=== PATIENT | male | born 1960 | race African-American/Black ===

== ENCOUNTER 2017-05-14 16:15 | Emergency (ER) | payer OTHER ==
--- NOTE | 2017-05-14 16:37 | PDOC ---
Rapid Medical Evaluation Time Seen by Provider: 05/14/17 16:36 Medical Evaluation: Allergies Allergy/AdvReac Type Severity Reaction Status Date / Time No Known Allergies Allergy Verified 05/14/17 16:27 05/14/17 16:36 The patient presents with a chief complaint of: chest pain, nausea vomiting, abd pain, back pain, fever, chills started this AM. Did not get the flu shot. I have performed a brief in-person evaluation of this patient; Pertinent physical exam findings: ambulatory, in no respiratory distress I have ordered the following: labs, IVF The patient will proceed to the ED for further evaluation.
[2017-05-14 16:39] VITALS: BMI 22.7
[2017-05-14] MEDS ORDERED: SODIUM CHLORIDE 1,000 ML IV STA (16:40)
[2017-05-14 17:53] LABS: BASO % 0.3 % (0-2.0); EOS % 0.2 % (0-4.5); HEMATOCRIT 44.6 % (35.4-49); HEMOGLOBIN 14.9 GM/dL (11.7-16.9); LYMPH % 6.1 % (8-40); MCH 32.2 pg (25.7-33.7); MCHC 33.5 g/dl (32.0-35.9); MEAN CELL VOLUME 96.3 fl (80-96); MEAN PLT VOLUME 8.4 fl (7.5-11.1); MONO % 3.2 % (3.8-10.2); NEUT % 90.2 % (42.8-82.8); PLATELET COUNT 144 K/MM3 (134-434); RBC 4.63 M/mm3 (4.00-5.60); RDW 14.7 % (11.9-15.9); WHITE BLOOD COUNT 11.5 K/mm3 (4.0-10.0)
[2017-05-14] MEDS ORDERED: ONDANSETRON 4 MG/2 ML VIAL IVPUSH ONE (18:11)
[2017-05-14] MEDS ORDERED: ACETAMINOPHEN 1000 MG/100 ML VIAL (NON FORMULARY) IVPB ONE (18:11)
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
[2017-05-14 18:22] LABS: ALBUMIN 4.4 g/dl (3.4-5.0); ALK PHOS 90 U/L (45-117); ANION GAP 14 (8-16); BILIRUBIN,TOTAL 0.6 mg/dL (0.2-1.0); BLOOD UREA NITROGEN 14 mg/dL (7-18); CALCIUM 8.7 mg/dL (8.5-10.1); CHLORIDE 105 mmol/L (98-107); CO2 21 mmol/L (21-32); GLUCOSE,RANDOM 97 mg/dL (74-106); LIPASE 131 U/L (73-393); SGOT/AST 99 U/L (15-37); SGPT/ALT 54 U/L (12-78); SODIUM 140 mmol/L (136-145); TOT PROT 7.7 g/dl (6.4-8.2)
[2017-05-14] MEDS ORDERED: ACETAMINOPHEN INJECTION 100 ML IVPB ONE (18:39)
[2017-05-14] MEDS ORDERED: ONDANSETRON 4 MG/2 ML VIAL ONE (18:39)
--- NOTE | 2017-05-14 18:54 | PDOC ---
Attending Attestation - Resident Resident Name: Barry Hedrick - ED Attending Attestation I have performed the following: I have examined & evaluated the patient, The case was reviewed & discussed with the resident, I agree w/resident's findings & plan, Exceptions are as noted - HPI HPI: 05/14/17 18:57 The patient is a 56 year old male, with a significant past medical history of GERD and hepatitis C, who presents to the emergency department with fever, chills, nasal congestion, sore throat, and diffuse body aches since earlier today. He denies any cough, headache, neck pain, ear pain, or dizziness. He endorses mild midsternal chest discomfort associated with coughing, but denies any diaphoresis, palpitations, shortness of breath, or lower extremity edema. He reports mild epigastric discomfort, nausea, vomiting(nonbloody/nonbilious), but denies any diarrhea or constipation. Patient reports he did not receive the flu shot this year. He denies any recent travel or sick contacts. - Physicial Exam PE: 05/14/17 18:58 "GENERAL: Awake, alert, and fully oriented, in no acute distress HEAD: No signs of trauma EYES: PERRLA, EOMI, sclera anicteric, conjunctiva clear ENT: Auricles normal inspection, hearing grossly normal, nares patent, oropharynx clear without exudates. Moist mucosa NECK: Nontender, no stepoffs, Normal ROM, supple, no lymphadenopathy, JVD, or masses LUNGS: Breath sounds equal, clear to auscultation bilaterally. No wheezes, and no crackles HEART: Regular rate and rhythm, normal S1 and S2, no murmurs, rubs or gallops ABDOMEN: Soft, nontender, normoactive bowel sounds. No guarding, no rebound. No masses EXTREMITIES: Normal range of motion, no edema. No clubbing or cyanosis. No cords, erythema, or tenderness NEUROLOGICAL: Cranial nerves II through XII intact. 5/5 strength and sensation in all extremities, Normal speech, normal gait, normal cerebellar function SKIN: Warm, Dry, normal turgor, no rashes or lesions noted. " - Medical Decision Making 05/14/17 18:58 56 M with flu-like illness. Pt also complaining of chest pain. This is likely 2/ 2 cough and URI but will r/o ACS with EKG and serial trops. - Labs, trop x 2 - CXR - EKG - GI cocktail, IVF - Reassess 05/14/17 20:09 Pt signed out to oncoming attending, pending second troponin, chest XR, EKG, and re-evaluation. Case discussed in detail with oncoming Emergency Physician including history, physical exam and ancillary studies. Oncoming Emergency Physician has assumed care for the patient and will complete the evaluation and treatment. Patient is aware of the plan.
[2017-05-14] MEDS ORDERED: FAMOTIDINE 20 MG/50 ML IVPB 20 MG/50 ML MG IVPB ONE ×2 (19:11→19:57)
--- NOTE | 2017-05-14 19:42 | PDOC ---
*Physical Exam - Vital Signs Last Vital Signs Temp Pulse Resp BP Pulse Ox 106 H 18 107/69 100 05/14/17 16:36 05/14/17 16:36 05/14/17 16:36 05/14/17 16:36 ED Treatment Course - LABORATORY CBC & Chemistry Diagram: 05/14/17 17:45 05/14/17 17:45 - ADDITIONAL ORDERS Additional order review: Laboratory Results 05/14/17 05/14/17 18:23 17:45 Sodium 140 Potassium 4.0 Chloride 105 Carbon Dioxide 21 D Anion Gap 14 BUN 14 Creatinine 1.0 Creat Clearance w eGFR > 60 Random Glucose 97 Calcium 8.7 Total Bilirubin 0.6 AST 99 H D ALT 54 D Alkaline Phosphatase 90 Creatine Kinase 617 H Creatine Kinase Index 0.5 CK-MB (CK-2) 3.267 Troponin I < 0.02 Total Protein 7.7 Albumin 4.4 Lipase 131 05/14/17 17:45 RBC 4.63 MCV 96.3 H MCHC 33.5 RDW 14.7 MPV 8.4 Neutrophils % 90.2 H Lymphocytes % 6.1 L D Monocytes % 3.2 L Eosinophils % 0.2 D Basophils % 0.3 - Medications Given in the ED: ED Medications Discontinued Medications Generic Name Dose Route Start Last Admin Trade Name Freq PRN Reason Stop Dose Admin Acetaminophen 1,000 mg 05/14/17 18:11 05/14/17 18:38 Ofirmev Injection - IVPB 05/14/17 18:12 1,000 mg ONCE ONE Administration Sodium Chloride 1,000 mls @ 1,000 mls/hr 05/14/17 16:40 05/14/17 17:49 Normal Saline - IV 05/14/17 17:39 1,000 mls/hr ASDIR STA Administration Ondansetron HCl 4 mg 05/14/17 18:11 05/14/17 18:48 Zofran Injection IVPUSH 05/14/17 18:12 4 mg ONCE ONE Administration Medical Decision Making - Medical Decision Making 05/14/17 23:50 Second trop negative ok to dc with tamiflu 05/14/17 23:56 *DC/Admit/Observation/Transfer Diagnosis at time of Disposition: Viral respiratory illness - Discharge Dispostion Disposition: HOME Condition at time of disposition: Improved Admit: No - Prescriptions Prescriptions: Oseltamivir Phosphate [Tamiflu] 75 mg PO BID #10 capsule - Referrals Referrals: Gisel Wilson [Primary Care Provider] - - Patient Instructions Printed Discharge Instructions: Influenza, DI for Viral Upper Respiratory Infection -- Adult Additional Instructions: Come back to the ER for any new, worsening or concerning symptoms. Follow up within 2-[address] Wilson. - Post Discharge Activity
[2017-05-14 20:34] LABS: URINE APPEARANCE CLEAR; URINE BILIRUBIN NEGATIVE (NEGATIVE); URINE BLOOD NEGATIVE (NEGATIVE); URINE COLOR YELLOW; URINE GLUCOSE (UA) NEGATIVE (NEGATIVE); URINE KETONE 2+ (NEGATIVE); URINE LEUK ESTERASE NEGATIVE (NEGATIVE); URINE NITRITE NEGATIVE (NEGATIVE); URINE PROTEIN NEGATIVE (NEGATIVE); URINE UROBILINOGEN NEGATIVE mg/dL (0.2-1.0)
[2017-05-14] MEDS ORDERED: OSELTAMIVIR PHOSPHATE 75 MG CAPSULE PO ONE (23:54)
[2017-05-15] MEDS ORDERED: OSELTAMIVIR PHOSPHATE 75 MG CAPSULE ONE (00:03)
[2017-05-15 00:10] VITALS: BP 116/54; PULSE 65; TEMP 99.3
--- NOTE | 2017-05-15 08:47 | EKG ---
Test Reason : Blood Pressure : / mmHG Vent. Rate : 089 BPM Atrial Rate : 089 BPM P-R Int : 146 ms QRS Dur : 080 ms QT Int : 362 ms P-R-T Axes : 079 070 025 degrees QTc Int : 440 ms NORMAL SINUS RHYTHM MINIMAL VOLTAGE CRITERIA FOR LVH, MAY BE NORMAL VARIANT NONSPECIFIC T WAVE ABNORMALITY ABNORMAL ECG WHEN COMPARED WITH ECG OF 26-SEP-2014 02:17, ST NO LONGER ELEVATED IN INFERIOR LEADS NONSPECIFIC T WAVE ABNORMALITY NOW EVIDENT IN INFERIOR LEADS NONSPECIFIC T WAVE ABNORMALITY, WORSE IN LATERAL LEADS Confirmed by CIARRA MERRITT, TYLER ([id number]) on 05/15/2017 8:47:26 AM Referred By: Confirmed By:TYLER LAFLEUR MD
[2017-05-15] MEDS ORDERED: MAG HYDROX/ALH/SMC/DPHA/LIDO 240 ML MOUTHWASH MM ONE (22:55)
== END 2017-05-15 01:23 | disposition home or self-care (01) ==
LOC: JER 16:15
PROC: 3E033GC Introduction of Other Therapeutic Substance into Peripheral Vein, Percutaneous Approach (ICD-10-PCS; principal; 2017-05-14)
PROC: 3E0337Z Introduction of Electrolytic and Water Balance Substance into Peripheral Vein, Percutaneous Approach (ICD-10-PCS; 2017-05-14)
PROC: 3E033NZ Introduction of Analgesics, Hypnotics, Sedatives into Peripheral Vein, Percutaneous Approach (ICD-10-PCS; 2017-05-14)
DX: J98.8 Other specified respiratory disorders (principal); B97.89 Other viral agents as the cause of diseases classified elsewhere; K75.9 Inflammatory liver disease, unspecified; K29.70 Gastritis, unspecified, without bleeding
CPT/HCPCS: 36415; 71046-TC-FY; 80053; 81003; 82550; 82553; 83690; 84484; 85025; 93005; 93010; 99282-25

== ENCOUNTER 2022-08-21 12:23 | Inpatient (IN) | payer OTHER ==
[~2022-08-21 12:23] MED LIST: HEPARIN NA (PORCINE) 5,000 UNITS/ML 1ML VIAL SQ ONE; ceFAZolin 2 GRAM PREMIX BAG IVPB ONE
[2022-08-28] MEDS ORDERED: CEFAZOLIN SODIUM 2 GM VIAL IVPB ONE (07:00)
[2022-08-28] MEDS ORDERED: HEPARIN NA (PORCINE) 5,000 UNITS/ML 1ML VIAL SQ ONE (07:30)
[2022-08-28] MEDS ORDERED: HEPARIN NA (PORCINE) 5,000 UNITS/ML 1ML VIAL ONE (12:32)
[2022-08-28] MEDS ORDERED: ceFAZolin SODIUM 1 GM VIAL ONE (12:32)
[2022-08-28] MEDS ORDERED: ROCURONIUM BROMIDE 50 MG/5 ML SYRINGE ONE ×2 (12:35→17:14)
[2022-08-28] MEDS ORDERED: PROPOFOL 20 ML ONE ×2 (12:35→15:34)
[2022-08-28] MEDS ORDERED: MIDAZOLAM HCL 2 MG/2 ML SINGLE DOSE VIAL ONE ×2 (12:35→15:34)
[2022-08-28] MEDS ORDERED: BUPIVACAINE HCL/PF 0.25% (2.5MG/ML) 10 ML VIAL ONE (13:10)
[2022-08-28] MEDS ORDERED: SEVOFLURANE 250 ML BTL ONE (14:21)
[2022-08-28] MEDS ORDERED: oxyCODONE HCL 5 MG TABLET PO PRN ×2 (14:30)
[2022-08-28] MEDS ORDERED: ONDANSETRON 4 MG/2 ML VIAL IVPUSH PRN ×2 (14:30→19:54)
[2022-08-28] MEDS ORDERED: LACTATED RINGERS SOLUTION 1,000 ML IV SCH (14:30)
[2022-08-28] MEDS ORDERED: PROMETHAZINE HCL 25 MG/1 ML VIAL IVPB PRN ×2 (14:30→19:54)
[2022-08-28] MEDS ORDERED: ACETAMINOPHEN 1000 MG/100 ML BAG IVPB PRN (14:31)
[2022-08-28] MEDS ORDERED: LIDOCAINE HCL/PF 2% SDV 5ML VIAL ONE (15:34)
[2022-08-28] MEDS ORDERED: DEXAMETHASONE SOD PHOSPHATE 4 MG/1 ML VIAL ONE (15:34)
[2022-08-28] MEDS ORDERED: ONDANSETRON 4 MG/2 ML VIAL ONE (15:34)
[2022-08-28] MEDS ORDERED: ceFAZolin SODIUM 1 GM VIAL IVPB ONE (16:25)
[2022-08-28] MEDS ORDERED: SUGAMMADEX SODIUM 200 MG/2 ML VIAL ONE (16:39)
[2022-08-28] MEDS ORDERED: BUPIVACAINE HCL/PF 0.25% (2.5MG/ML) 10 ML VIAL IJ ONE (18:48)
[2022-08-28] MEDS ORDERED: HYDROmorphone *PCA* 10MG/50ML DISP.SYRIN ONE (19:27)
[2022-08-28] MEDS: ALBUTEROL SO4 2.5/IPRATROPIUM 0.5 INH SOL 3 ML VIAL.NEB. NEB PRN (19:50)
[2022-08-28] MEDS ORDERED: ALBUTEROL SO4 0.083% IH SOL 2.5 MG/3 ML VIAL.NEB. NEB ONE (19:51)
[2022-08-28] MEDS ORDERED: ACETAMINOPHEN 1000 MG/100 ML BAG IVPB SCH (20:00)
[2022-08-28] MEDS ORDERED: SODIUM CHLORIDE 1,000 ML IV SCH (20:00)
[2022-08-28 20:13] LABS: BASO % 0.8 % (0-2.0); EOS % 0.1 % (0-4.5); HEMATOCRIT 34.4 % (35.4-49); HEMOGLOBIN 11.5 GM/dL (11.7-16.9); LYMPH % 25.3 % (8-40); MCH 33.9 pg (25.7-33.7); MCHC 33.5 g/dl (32.0-35.9); MEAN CELL VOLUME 101.1 fl (80-96); MEAN PLT VOLUME 7.4 fl (7.5-11.1); MONO % 1.1 % (3.8-10.2); NEUT % 72.7 % (42.8-82.8); PLATELET COUNT 112 10^3/uL (134-434); RDW 14.2 % (11.9-15.9); WHITE BLOOD COUNT 4.9 K/mm3 (4.0-10.0)
[2022-08-28 20:32] LABS: POTASSIUM 3.6 mmol/L (3.5-5.1)
[2022-08-28 20:34] LABS: CALCIUM 7.7 mg/dL (8.5-10.1)
[2022-08-28 20:35] LABS: ALBUMIN 2.8 g/dl (3.4-5.0); BLOOD UREA NITROGEN 8.9 mg/dL (7-18); INR 1.2 (0.83-1.09); PROTHROMBIN TIME (PATIENT) 13.9 SEC (9.7-13.0)
[2022-08-28 20:37] LABS: CREATININE 0.8 mg/dL (0.55-1.3)
[2022-08-28 20:39] LABS: BILIRUBIN,TOTAL 0.4 mg/dL (0.2-1); TOT PROT 5.2 g/dl (6.4-8.2)
[2022-08-28] MEDS: HYDROmorphone *PCA* 10MG/50ML DISP.SYRIN PCA SCH (22:08)
[2022-08-28] MEDS: ACETAMINOPHEN 1000 MG/100 ML BAG IVPB SCH (22:11)
[2022-08-28] MEDS: CHLORHEXIDINE GLUCONATE 4% CLEANSER FOR DECOLONIZATION TP SCH (22:12)
[2022-08-28] MEDS: hydrOXYzine PAMOATE 25 MG CAPSULE (FP) PO SCH (22:12)
[2022-08-28] MEDS: MIRTAZAPINE 30 MG TABLET PO SCH (22:12)
[2022-08-28] MEDS: ATORVASTATIN CA 40 MG TABLET (FP) PO SCH (22:12)
[2022-08-28] MEDS: FAMOTIDINE 40 MG TABLET PO SCH (22:12)
[2022-08-28] MEDS: CEFAZOLIN 1 GM in DEXTROSE 5%-WATER - 50 ML IVPB SCH (23:55)
[2022-08-28] MEDS: MUPIROCIN 2% TOPICAL OINTMENT FOR DECOLONIZATION NS SCH (23:55)
[2022-08-29] MEDS ORDERED: ONDANSETRON 4 MG/2 ML VIAL IVPUSH PRN ×2 (01:01→08:01)
[2022-08-29] MEDS ORDERED: ONDANSETRON 4 MG/2 ML VIAL ONE (01:04)
[2022-08-29] MEDS: ACETAMINOPHEN 1000 MG/100 ML BAG IVPB SCH ×3 (01:06→13:04)
[2022-08-29] MEDS: CEFAZOLIN 1 GM in DEXTROSE 5%-WATER - 50 ML IVPB SCH ×3 (01:07→17:23)
[2022-08-29] MEDS: hydrOXYzine PAMOATE 25 MG CAPSULE (FP) PO SCH (05:02)
[2022-08-29 07:13] LABS: INR 1.03 (0.83-1.09)
[2022-08-29 07:16] LABS: ACTIVATED PTT 24.4 SECONDS (25.2-36.5)
[2022-08-29 07:17] LABS: HEMATOCRIT 34.7 % (35.4-49); HEMOGLOBIN 11.7 GM/dL (11.7-16.9); MCH 34.3 pg (25.7-33.7); MCHC 33.6 g/dl (32.0-35.9); MEAN CELL VOLUME 102.1 fl (80-96); MEAN PLT VOLUME 8.2 fl (7.5-11.1); PLATELET COUNT 115 10^3/uL (134-434); RDW 14.9 % (11.9-15.9); WHITE BLOOD COUNT 10.6 K/mm3 (4.0-10.0)
[2022-08-29 08:24] LABS: POTASSIUM 4.5 mmol/L (3.5-5.1)
[2022-08-29 08:25] LABS: CALCIUM 8.2 mg/dL (8.5-10.1)
[2022-08-29 08:26] LABS: BLOOD UREA NITROGEN 7.2 mg/dL (7-18); MAGNESIUM 1.5 mg/dL (1.8-2.4)
[2022-08-29 08:29] LABS: CREATININE 0.8 mg/dL (0.55-1.3); PHOSPHOROUS 4.5 mg/dL (2.5-4.9)
[2022-08-29] MEDS: DOCUSATE SODIUM 100 MG CAPSULE (FP) PO SCH ×2 (09:03→21:10)
[2022-08-29] MEDS: NICOTINE 21 MG/24 HOURS TOPICAL PATCH TD SCH (09:03)
[2022-08-29] MEDS: FOLIC ACID 1 MG TABLET (FP) PO SCH (09:03)
[2022-08-29] MEDS: CHOLECALCIFEROL (VIT D3) 1,000 UNIT (25 MCG) TABLET PO SCH (09:04)
[2022-08-29] MEDS: PANTOPRAZOLE 40 MG TABLET PO SCH (09:04)
[2022-08-29] MEDS: MUPIROCIN 2% TOPICAL OINTMENT FOR DECOLONIZATION NS SCH ×2 (09:04→21:11)
[2022-08-29] MEDS ORDERED: MAGNESIUM 2GM/50ML STERILE WATER IVPB IVPB ONE (09:30)
[2022-08-29] MEDS ORDERED: TADALAFIL 5 MG PO SCH (10:00)
[2022-08-29] MEDS: LORazepam 2 MG/ML SDV VIAL IVPUSH PRN (15:39)
[2022-08-29] MEDS ORDERED: MIRTAZAPINE 15 MG TABLET (FP) ONE (20:58)
[2022-08-29] MEDS: MIRTAZAPINE 30 MG TABLET PO SCH (21:10)
[2022-08-29] MEDS: ATORVASTATIN CA 40 MG TABLET (FP) PO SCH (21:10)
[2022-08-29] MEDS: FAMOTIDINE 40 MG TABLET PO SCH (21:10)
[2022-08-29] MEDS: CHLORHEXIDINE GLUCONATE 4% CLEANSER FOR DECOLONIZATION TP SCH (21:11)
[2022-08-30 06:29] LABS: BASO % 0.1 % (0-2.0); HEMATOCRIT 31.3 % (35.4-49); HEMOGLOBIN 10.5 GM/dL (11.7-16.9); MCH 34.4 pg (25.7-33.7); MCHC 33.7 g/dl (32.0-35.9); MEAN CELL VOLUME 102.3 fl (80-96); MEAN PLT VOLUME 8.5 fl (7.5-11.1); MONO % 7.6 % (3.8-10.2); NEUT % 79.3 % (42.8-82.8); PLATELET COUNT 83 10^3/uL (134-434); RBC 3.06 M/mm3 (4.00-5.60); RDW 14.5 % (11.9-15.9); WHITE BLOOD COUNT 8.9 K/mm3 (4.0-10.0)
[2022-08-30 06:41] LABS: POTASSIUM 3.8 mmol/L (3.5-5.1)
[2022-08-30 06:46] LABS: CALCIUM 8.1 mg/dL (8.5-10.1)
[2022-08-30 06:47] LABS: BLOOD UREA NITROGEN 5.6 mg/dL (7-18); MAGNESIUM 2.1 mg/dL (1.8-2.4)
[2022-08-30 06:49] LABS: PHOSPHOROUS 1.4 mg/dL (2.5-4.9)
[2022-08-30 06:50] LABS: CREATININE 0.7 mg/dL (0.55-1.3)
[2022-08-30 06:51] LABS: BILIRUBIN,TOTAL 0.6 mg/dL (0.2-1); TOT PROT 5.6 g/dl (6.4-8.2)
[2022-08-30] MEDS: PANTOPRAZOLE 40 MG TABLET PO SCH (09:54)
[2022-08-30] MEDS: CHOLECALCIFEROL (VIT D3) 1,000 UNIT (25 MCG) TABLET PO SCH (09:54)
[2022-08-30] MEDS: FOLIC ACID 1 MG TABLET (FP) PO SCH (09:54)
[2022-08-30] MEDS: NICOTINE 21 MG/24 HOURS TOPICAL PATCH TD SCH (09:54)
[2022-08-30] MEDS: DOCUSATE SODIUM 100 MG CAPSULE (FP) PO SCH ×2 (09:54→21:54)
[2022-08-30] MEDS: MUPIROCIN 2% TOPICAL OINTMENT FOR DECOLONIZATION NS SCH ×2 (09:55→21:55)
[2022-08-30] MEDS ORDERED: ACETAMINOPHEN 1000 MG/100 ML BAG IVPB ONE (19:11)
[2022-08-30] MEDS ORDERED: MIRTAZAPINE 15 MG TABLET (FP) ONE (19:43)
[2022-08-30] MEDS: ATORVASTATIN CA 40 MG TABLET (FP) PO SCH (21:54)
[2022-08-30] MEDS: FAMOTIDINE 40 MG TABLET PO SCH (21:54)
[2022-08-30] MEDS: MIRTAZAPINE 30 MG TABLET PO SCH (21:55)
[2022-08-30] MEDS: CHLORHEXIDINE GLUCONATE 4% CLEANSER FOR DECOLONIZATION TP SCH (21:56)
[2022-08-30] MEDS: ALBUTEROL SO4 2.5/IPRATROPIUM 0.5 INH SOL 3 ML VIAL.NEB. NEB PRN (22:23)
[2022-08-31] MEDS: LORazepam 2 MG/ML SDV VIAL IVPUSH PRN (04:37)
[2022-08-31] MEDS ORDERED: LORazepam 2 MG/ML SDV VIAL IVPUSH STA ×2 (05:02→13:06)
[2022-08-31] MEDS ORDERED: HYDROmorphone HCl 2 MG/ML VIAL IVPUSH ONE (05:05)
[2022-08-31 06:55] LABS: HEMATOCRIT 28.2 % (35.4-49); HEMOGLOBIN 9.7 GM/dL (11.7-16.9); MCH 35.6 pg (25.7-33.7); MCHC 34.4 g/dl (32.0-35.9); MEAN CELL VOLUME 103.5 fl (80-96); MEAN PLT VOLUME 8.6 fl (7.5-11.1); PLATELET COUNT 83 10^3/uL (134-434); RBC 2.72 M/mm3 (4.00-5.60); RDW 14.3 % (11.9-15.9); WHITE BLOOD COUNT 7.8 K/mm3 (4.0-10.0)
[2022-08-31 07:49] LABS: POTASSIUM 3.6 mmol/L (3.5-5.1)
[2022-08-31 07:56] LABS: BLOOD UREA NITROGEN 6.4 mg/dL (7-18); CALCIUM 8.1 mg/dL (8.5-10.1); MAGNESIUM 2.1 mg/dL (1.8-2.4)
[2022-08-31 08:00] LABS: CREATININE 0.7 mg/dL (0.55-1.3); PHOSPHOROUS 2.3 mg/dL (2.5-4.9)
[2022-08-31] MEDS ORDERED: ACETAMINOPHEN 1000 MG/100 ML BAG IVPB STA (09:51)
[2022-08-31] MEDS: NICOTINE 21 MG/24 HOURS TOPICAL PATCH TD SCH (09:55)
[2022-08-31] MEDS ORDERED: LORazepam 2 MG/ML SDV VIAL IVPUSH ONE (10:30)
[2022-08-31] MEDS ORDERED: DEXMEDETOMIDINE PREMIX 400 MCG/100 ML BAG IVPB ONE (11:47)
[2022-08-31] MEDS: PANTOPRAZOLE 40 MG TABLET PO SCH (13:05)
[2022-08-31] MEDS: DOCUSATE SODIUM 100 MG CAPSULE (FP) PO SCH ×2 (13:05→21:14)
[2022-08-31] MEDS: FOLIC ACID 1 MG TABLET (FP) PO SCH (13:05)
[2022-08-31] MEDS: CHOLECALCIFEROL (VIT D3) 1,000 UNIT (25 MCG) TABLET PO SCH (13:05)
[2022-08-31] MEDS: DEXMEDETOMIDINE PREMIX 400 MCG/100 ML BAG IVPB SCH ×2 (13:15→22:46)
[2022-08-31] MEDS: ACETAMINOPHEN 1000 MG/100 ML BAG IVPB SCH ×2 (14:30→17:53)
[2022-08-31] MEDS: GABAPENTIN 300 MG CAPSULE PO SCH ×2 (14:30→22:50)
[2022-08-31] MEDS: MUPIROCIN 2% TOPICAL OINTMENT FOR DECOLONIZATION NS SCH ×2 (15:31→21:19)
[2022-08-31] MEDS: KETOROLAC TROMETHAMINE 15 MG/ML VIAL IVPUSH PRN (21:03)
[2022-08-31] MEDS: ATORVASTATIN CA 40 MG TABLET (FP) PO SCH (21:14)
[2022-08-31] MEDS: CHLORHEXIDINE GLUCONATE 4% CLEANSER FOR DECOLONIZATION TP SCH (21:14)
[2022-08-31] MEDS: FAMOTIDINE 40 MG TABLET PO SCH (21:15)
[2022-08-31] MEDS: MIRTAZAPINE 30 MG TABLET PO SCH (21:16)
[2022-09-01] MEDS: ACETAMINOPHEN 1000 MG/100 ML BAG IVPB SCH ×3 (02:43→18:21)
[2022-09-01] MEDS: DEXMEDETOMIDINE PREMIX 400 MCG/100 ML BAG IVPB SCH ×5 (03:45→14:30)
[2022-09-01] MEDS: GABAPENTIN 300 MG CAPSULE PO SCH ×3 (06:36→21:39)
[2022-09-01 07:25] LABS: HEMATOCRIT 28.1 % (35.4-49); HEMOGLOBIN 9.5 GM/dL (11.7-16.9); MCH 34.6 pg (25.7-33.7); MCHC 33.6 g/dl (32.0-35.9); MEAN CELL VOLUME 102.8 fl (80-96); MEAN PLT VOLUME 8.6 fl (7.5-11.1); PLATELET COUNT 94 10^3/uL (134-434); RBC 2.74 M/mm3 (4.00-5.60); RDW 13.9 % (11.9-15.9); WHITE BLOOD COUNT 5.3 K/mm3 (4.0-10.0)
[2022-09-01 07:55] LABS: POTASSIUM 3.7 mmol/L (3.5-5.1)
[2022-09-01 07:59] LABS: BLOOD UREA NITROGEN 14.6 mg/dL (7-18); CALCIUM 8.1 mg/dL (8.5-10.1)
[2022-09-01 08:00] LABS: MAGNESIUM 2.2 mg/dL (1.8-2.4)
[2022-09-01 08:02] LABS: CREATININE 0.6 mg/dL (0.55-1.3); PHOSPHOROUS 3.6 mg/dL (2.5-4.9)
[2022-09-01] MEDS ORDERED: LORazepam 2 MG/ML SDV VIAL IVPUSH SCH ×2 (08:15→10:01)
[2022-09-01] MEDS ORDERED: LORazepam 2 MG/ML SDV VIAL IVPB SCH (09:00)
[2022-09-01] MEDS: LORazepam 2 MG/ML SDV VIAL IVPUSH SCH ×3 (10:10→21:43)
[2022-09-01] MEDS: NICOTINE 21 MG/24 HOURS TOPICAL PATCH TD SCH (10:15)
[2022-09-01] MEDS: FOLIC ACID 1 MG TABLET (FP) PO SCH (10:20)
[2022-09-01] MEDS: PANTOPRAZOLE 40 MG TABLET PO SCH (10:20)
[2022-09-01] MEDS: DOCUSATE SODIUM 100 MG CAPSULE (FP) PO SCH ×2 (10:20→21:18)
[2022-09-01] MEDS: THIAMINE HCL 100 MG TABLET (FP) PO SCH (10:21)
[2022-09-01] MEDS: CYANOCOBALAMIN 1,000 MCG TABLET (FP) PO SCH (10:21)
[2022-09-01] MEDS: CHOLECALCIFEROL (VIT D3) 1,000 UNIT (25 MCG) TABLET PO SCH (10:22)
[2022-09-01] MEDS: MUPIROCIN 2% TOPICAL OINTMENT FOR DECOLONIZATION NS SCH ×2 (10:31→21:39)
[2022-09-01] MEDS: SODIUM CHLORIDE 1,000 ML IV SCH (15:12)
[2022-09-01] MEDS ORDERED: SODIUM CHLORIDE 500 ML IV STA ×2 (16:25→17:40)
[2022-09-01] MEDS ORDERED: LACTATED RINGERS SOLUTION 1,000 ML/1,000 ML INFUS.BAG IV ONE (19:31)
[2022-09-01] MEDS: HYDROmorphone *PCA* 10MG/50ML DISP.SYRIN PCA SCH ×2 (19:44→19:45)
[2022-09-01] MEDS: ATORVASTATIN CA 40 MG TABLET (FP) PO SCH (21:37)
[2022-09-01] MEDS: MIRTAZAPINE 30 MG TABLET PO SCH (21:38)
[2022-09-01] MEDS: FAMOTIDINE 40 MG TABLET PO SCH (21:38)
[2022-09-01] MEDS: CHLORHEXIDINE GLUCONATE 4% CLEANSER FOR DECOLONIZATION TP SCH (21:39)
[2022-09-01] MEDS ORDERED: LACTATED RINGERS SOLUTION 1,000 ML/1,000 ML INFUS.BAG IV STA (22:05)
[2022-09-01] MEDS ORDERED: LACTATED RINGERS SOLUTION 1000 ML INFUS.BAG IV SCH (22:15)
[2022-09-02] MEDS: ACETAMINOPHEN 1000 MG/100 ML BAG IVPB SCH ×3 (02:31→17:40)
[2022-09-02] MEDS: LORazepam 2 MG/ML SDV VIAL IVPUSH SCH ×4 (02:32→21:53)
[2022-09-02] MEDS: SODIUM CHLORIDE 1,000 ML IV SCH (02:32)
[2022-09-02] MEDS ORDERED: LACTATED RINGERS SOLUTION 1,000 ML/1,000 ML INFUS.BAG IV SCH (03:15)
[2022-09-02] MEDS: PHENYLEPHRINE NS PREMIX 50,000 MCG/500 ML BAG CVP SCH ×3 (04:39→23:47)
[2022-09-02] MEDS: GABAPENTIN 300 MG CAPSULE PO SCH ×3 (06:29→21:53)
[2022-09-02 07:52] LABS: BASO % 0.5 % (0-2.0); EOS % 3.4 % (0-4.5); HEMATOCRIT 28.1 % (35.4-49); HEMOGLOBIN 9.5 GM/dL (11.7-16.9); LYMPH % 10.3 % (8-40); MCH 34.8 pg (25.7-33.7); MCHC 33.7 g/dl (32.0-35.9); MEAN CELL VOLUME 103.2 fl (80-96); MEAN PLT VOLUME 8.3 fl (7.5-11.1); MONO % 10.4 % (3.8-10.2); NEUT % 75.4 % (42.8-82.8); PLATELET COUNT 162 10^3/uL (134-434); RBC 2.72 M/mm3 (4.00-5.60); RDW 13.9 % (11.9-15.9); WHITE BLOOD COUNT 7.3 K/mm3 (4.0-10.0)
[2022-09-02 07:58] LABS: POTASSIUM 3.7 mmol/L (3.5-5.1)
[2022-09-02 08:02] LABS: BLOOD UREA NITROGEN 11.5 mg/dL (7-18); CALCIUM 8.1 mg/dL (8.5-10.1); MAGNESIUM 1.8 mg/dL (1.8-2.4)
[2022-09-02 08:05] LABS: CREATININE 0.6 mg/dL (0.55-1.3); PHOSPHOROUS 2.7 mg/dL (2.5-4.9)
[2022-09-02 08:07] LABS: BILIRUBIN,TOTAL 0.5 mg/dL (0.2-1); TOT PROT 4.4 g/dl (6.4-8.2)
[2022-09-02] MEDS ORDERED: oxyCODONE HCL 5 MG TABLET PO PRN (08:42)
[2022-09-02] MEDS ORDERED: LORazepam 2 MG/ML SDV VIAL IVPB SCH (09:00)
[2022-09-02] MEDS: FOLIC ACID 1 MG TABLET (FP) PO SCH (09:48)
[2022-09-02] MEDS: oxyCODONE HCL 5 MG TABLET PO PRN (09:48)
[2022-09-02] MEDS: PANTOPRAZOLE 40 MG TABLET PO SCH (09:48)
[2022-09-02] MEDS: NICOTINE 21 MG/24 HOURS TOPICAL PATCH TD SCH (09:48)
[2022-09-02] MEDS: THIAMINE HCL 100 MG TABLET (FP) PO SCH (09:48)
[2022-09-02] MEDS: MIDODRINE HCL 5 MG TABLET PO SCH ×3 (09:48→17:40)
[2022-09-02] MEDS: DOCUSATE SODIUM 100 MG CAPSULE (FP) PO SCH (09:48)
[2022-09-02] MEDS: CYANOCOBALAMIN 1,000 MCG TABLET (FP) PO SCH (09:49)
[2022-09-02] MEDS: CHOLECALCIFEROL (VIT D3) 1,000 UNIT (25 MCG) TABLET PO SCH (09:49)
[2022-09-02] MEDS: MUPIROCIN 2% TOPICAL OINTMENT FOR DECOLONIZATION NS SCH (09:50)
[2022-09-02] MEDS ORDERED: POLYETHYLENE GLYCOL (HEALTHYLAX) 3350 17 GM PACKET PO SCH (10:00)
[2022-09-02] MEDS ORDERED: LACTATED RINGERS SOLUTION 1000 ML INFUS.BAG IV ONE (11:13)
[2022-09-02] MEDS: LACTATED RINGERS SOLUTION 1,000 ML/1,000 ML INFUS.BAG IV SCH (11:55)
[2022-09-02] MEDS: KETOROLAC TROMETHAMINE 15 MG/ML VIAL IVPUSH PRN (13:08)
[2022-09-02] MEDS: HEPARIN NA (PORCINE) 5,000 UNITS/ML 1ML VIAL SQ SCH ×2 (13:09→21:52)
[2022-09-02] MEDS ORDERED: PIPERACILLIN/TAZOB 4.5 GM 4.5 GM in DEXTROSE 5%-WATER 100 ML IVPB SCH ×2 (13:45→14:00)
[2022-09-02] MEDS: PIPERACILLIN/TAZOB 4.5 GM 4.5 GM in DEXTROSE 5%-WATER 100 ML IVPB SCH ×2 (14:43→17:40)
[2022-09-02] MEDS ORDERED: MIRTAZAPINE 15 MG TABLET (FP) ONE (21:49)
[2022-09-02] MEDS: ATORVASTATIN CA 40 MG TABLET (FP) PO SCH (21:53)
[2022-09-02] MEDS: CHLORHEXIDINE GLUCONATE 4% CLEANSER FOR DECOLONIZATION TP SCH (21:53)
[2022-09-02] MEDS: MIRTAZAPINE 30 MG TABLET PO SCH (21:54)
[2022-09-02] MEDS: FAMOTIDINE 40 MG TABLET PO SCH (21:55)
[2022-09-03] MEDS: PIPERACILLIN/TAZOB 4.5 GM 4.5 GM in DEXTROSE 5%-WATER 100 ML IVPB SCH ×3 (01:35→17:28)
[2022-09-03] MEDS: LACTATED RINGERS SOLUTION 1,000 ML/1,000 ML INFUS.BAG IV SCH ×2 (01:36→12:15)
[2022-09-03] MEDS: ACETAMINOPHEN 1000 MG/100 ML BAG IVPB SCH ×3 (02:35→17:28)
[2022-09-03] MEDS: LORazepam 2 MG/ML SDV VIAL IVPUSH SCH (02:35)
[2022-09-03] MEDS: HEPARIN NA (PORCINE) 5,000 UNITS/ML 1ML VIAL SQ SCH ×3 (05:38→21:26)
[2022-09-03] MEDS: GABAPENTIN 300 MG CAPSULE PO SCH ×4 (05:39→07:10)
[2022-09-03 07:49] LABS: HEMATOCRIT 24.3 % (35.4-49); HEMOGLOBIN 8.3 GM/dL (11.7-16.9); MCH 34.8 pg (25.7-33.7); MCHC 34.1 g/dl (32.0-35.9); MEAN CELL VOLUME 102.1 fl (80-96); MEAN PLT VOLUME 7.7 fl (7.5-11.1); PLATELET COUNT 206 10^3/uL (134-434); RBC 2.38 M/mm3 (4.00-5.60); RDW 13.9 % (11.9-15.9); WHITE BLOOD COUNT 8.6 K/mm3 (4.0-10.0)
[2022-09-03 08:06] LABS: POTASSIUM 3.4 mmol/L (3.5-5.1)
[2022-09-03 08:14] LABS: ALBUMIN 1.9 g/dl (3.4-5.0)
[2022-09-03 08:16] LABS: BLOOD UREA NITROGEN 6.4 mg/dL (7-18); CALCIUM 7.8 mg/dL (8.5-10.1)
[2022-09-03 08:17] LABS: CREATININE 0.7 mg/dL (0.55-1.3); MAGNESIUM 1.6 mg/dL (1.8-2.4); PHOSPHOROUS 1.2 mg/dL (2.5-4.9)
[2022-09-03 08:18] LABS: BILIRUBIN,TOTAL 0.4 mg/dL (0.2-1); TOT PROT 4.7 g/dl (6.4-8.2)
[2022-09-03] MEDS ORDERED: NAPH,MB-DB/K PH,MBDB POWDER PACKET PO ONE (08:30)
[2022-09-03] MEDS ORDERED: MAGNESIUM SULF 50% (8.12 MEQ/2 ML-1 GM VIAL) IVPB ONE (08:30)
[2022-09-03] MEDS ORDERED: POTASSIUM CHLORIDE ORAL LIQUID 20 MEQ/15 ML PO ONE (08:30)
[2022-09-03] MEDS ORDERED: LORazepam 2 MG/ML SDV VIAL IVPB ONE (09:00)
[2022-09-03] MEDS ORDERED: LORazepam 2 MG/ML SDV VIAL IVPUSH ONE ×2 (09:00→11:36)
[2022-09-03 09:01] LABS: URINE APPEARANCE CLEAR; URINE BILIRUBIN NEGATIVE (NEGATIVE); URINE COLOR YELLOW; URINE GLUCOSE (UA) NEGATIVE (NEGATIVE); URINE KETONE 1+ (NEGATIVE); URINE LEUK ESTERASE NEGATIVE (NEGATIVE); URINE NITRITE NEGATIVE (NEGATIVE); URINE PROTEIN TRACE (NEGATIVE); URINE UROBILINOGEN 0.2 mg/dL (0.2-1.0)
[2022-09-03] MEDS: THIAMINE HCL 100 MG TABLET (FP) PO SCH (09:32)
[2022-09-03] MEDS: CHOLECALCIFEROL (VIT D3) 1,000 UNIT (25 MCG) TABLET PO SCH (09:32)
[2022-09-03] MEDS: CYANOCOBALAMIN 1,000 MCG TABLET (FP) PO SCH (09:33)
[2022-09-03] MEDS: MIDODRINE HCL 5 MG TABLET PO SCH ×3 (09:33→17:28)
[2022-09-03] MEDS: NICOTINE 21 MG/24 HOURS TOPICAL PATCH TD SCH (09:33)
[2022-09-03] MEDS: PANTOPRAZOLE 40 MG TABLET PO SCH (09:33)
[2022-09-03] MEDS: FOLIC ACID 1 MG TABLET (FP) PO SCH (09:33)
[2022-09-03 09:36] LABS: ANISOCYTOSIS 1+; MACROCYTOSIS 1+
[2022-09-03] MEDS ORDERED: DEXMEDETOMIDINE PREMIX 400 MCG/100 ML BAG IVPB ONE (11:59)
[2022-09-03] MEDS: DEXMEDETOMIDINE PREMIX 400 MCG/100 ML BAG IVPB SCH ×2 (12:14→19:50)
[2022-09-03] MEDS ORDERED: chlordiazePOXIDE HCL 10 MG CAPSULE PO SCH (14:00)
[2022-09-03] MEDS ORDERED: SODIUM CHLORIDE IVPB ONE (14:52)
[2022-09-03] MEDS ORDERED: POTASSIUM PHOSPHATE IVPB ONE (14:52)
[2022-09-03 15:23] VITALS: BMI 20.8
[2022-09-03] MEDS ORDERED: POTASSIUM PHOSPHATE 45 MM in SODIUM CHLORIDE 500 ML IVPB ONE (16:00)
[2022-09-03] MEDS: LORazepam 2 MG/ML SDV VIAL IVPUSH PRN ×2 (18:55→21:56)
[2022-09-03 21:12] LABS: BASO % 0.6 % (0-2.0); EOS % 1.7 % (0-4.5); HEMOGLOBIN 8.5 GM/dL (11.7-16.9); LYMPH % 10.2 % (8-40); MCHC 34.1 g/dl (32.0-35.9); MEAN CELL VOLUME 102.4 fl (80-96); MEAN PLT VOLUME 8.9 fl (7.5-11.1); MONO % 13.9 % (3.8-10.2); NEUT % 73.6 % (42.8-82.8); PLATELET COUNT 193 10^3/uL (134-434); RBC 2.44 M/mm3 (4.00-5.60); RDW 14.1 % (11.9-15.9); WHITE BLOOD COUNT 8.6 K/mm3 (4.0-10.0)
[2022-09-03] MEDS: PHENYLEPHRINE NS PREMIX 50,000 MCG/500 ML BAG CVP SCH (21:20)
[2022-09-03] MEDS: CHLORHEXIDINE GLUCONATE 4% CLEANSER FOR DECOLONIZATION TP SCH (21:26)
[2022-09-03] MEDS: ATORVASTATIN CA 40 MG TABLET (FP) PO SCH (21:27)
[2022-09-04] MEDS: LORazepam 2 MG/ML SDV VIAL IVPUSH PRN ×3 (00:50→20:10)
[2022-09-04] MEDS: ACETAMINOPHEN 1000 MG/100 ML BAG IVPB SCH ×3 (01:20→17:29)
[2022-09-04] MEDS: PIPERACILLIN/TAZOB 4.5 GM 4.5 GM in DEXTROSE 5%-WATER 100 ML IVPB SCH ×3 (01:21→17:25)
[2022-09-04] MEDS: DEXMEDETOMIDINE PREMIX 400 MCG/100 ML BAG IVPB SCH ×3 (02:56→20:10)
[2022-09-04 04:40] LABS: CALCIUM 8.1 mg/dL (8.5-10.1); POTASSIUM 4.2 mmol/L (3.5-5.1)
[2022-09-04 04:41] LABS: ALBUMIN 1.8 g/dl (3.4-5.0); BLOOD UREA NITROGEN 5.5 mg/dL (7-18)
[2022-09-04 04:43] LABS: CREATININE 0.5 mg/dL (0.55-1.3); PHOSPHOROUS 5.2 mg/dL (2.5-4.9)
[2022-09-04 04:45] LABS: BILIRUBIN,TOTAL 0.4 mg/dL (0.2-1); TOT PROT 4.6 g/dl (6.4-8.2)
[2022-09-04] MEDS: HEPARIN NA (PORCINE) 5,000 UNITS/ML 1ML VIAL SQ SCH ×3 (05:22→21:22)
[2022-09-04] MEDS: LACTATED RINGERS SOLUTION 1,000 ML/1,000 ML INFUS.BAG IV SCH ×4 (06:06→23:24)
[2022-09-04 07:56] LABS: BASO % 0.8 % (0-2.0); EOS % 3.2 % (0-4.5); HEMATOCRIT 27.7 % (35.4-49); HEMOGLOBIN 9.2 GM/dL (11.7-16.9); LYMPH % 16.7 % (8-40); MCH 34.2 pg (25.7-33.7); MCHC 33.4 g/dl (32.0-35.9); MEAN CELL VOLUME 102.2 fl (80-96); MEAN PLT VOLUME 8.5 fl (7.5-11.1); MONO % 13.6 % (3.8-10.2); NEUT % 65.7 % (42.8-82.8); PLATELET COUNT 234 10^3/uL (134-434); RBC 2.71 M/mm3 (4.00-5.60); RDW 13.7 % (11.9-15.9); WHITE BLOOD COUNT 6.6 K/mm3 (4.0-10.0)
[2022-09-04] MEDS: CHOLECALCIFEROL (VIT D3) 1,000 UNIT (25 MCG) TABLET PO SCH (09:15)
[2022-09-04] MEDS: PANTOPRAZOLE 40 MG TABLET PO SCH ×2 (09:15→12:43)
[2022-09-04] MEDS: FOLIC ACID 1 MG TABLET (FP) PO SCH ×2 (09:15→12:43)
[2022-09-04] MEDS: THIAMINE HCL 100 MG TABLET (FP) PO SCH (09:15)
[2022-09-04] MEDS: NICOTINE 21 MG/24 HOURS TOPICAL PATCH TD SCH (09:15)
[2022-09-04] MEDS: MIDODRINE HCL 5 MG TABLET PO SCH ×4 (09:17→17:26)
[2022-09-04] MEDS: MULTIVITAMINS (DAILY MVI) TABLET (FP) PO SCH (09:18)
[2022-09-04] MEDS: CYANOCOBALAMIN 1,000 MCG TABLET (FP) PO SCH (10:28)
[2022-09-04] MEDS: PHENYLEPHRINE NS PREMIX 50,000 MCG/500 ML BAG CVP SCH (21:21)
[2022-09-04] MEDS: CHLORHEXIDINE GLUCONATE 4% CLEANSER FOR DECOLONIZATION TP SCH (21:22)
[2022-09-04] MEDS: ATORVASTATIN CA 40 MG TABLET (FP) PO SCH (21:22)
[2022-09-04] MEDS: oxyCODONE HCL 5 MG TABLET PO PRN (23:21)
[2022-09-05] MEDS: PIPERACILLIN/TAZOB 4.5 GM 4.5 GM in DEXTROSE 5%-WATER 100 ML IVPB SCH ×3 (01:18→17:15)
[2022-09-05] MEDS: LORazepam 2 MG/ML SDV VIAL IVPUSH PRN (01:18)
[2022-09-05] MEDS: ACETAMINOPHEN 1000 MG/100 ML BAG IVPB SCH ×3 (01:18→17:16)
[2022-09-05] MEDS: HEPARIN NA (PORCINE) 5,000 UNITS/ML 1ML VIAL SQ SCH ×3 (05:19→22:16)
[2022-09-05] MEDS: DEXMEDETOMIDINE PREMIX 400 MCG/100 ML BAG IVPB SCH ×2 (06:22→14:16)
[2022-09-05 07:12] LABS: BASO % 0.5 % (0-2.0); EOS % 2.7 % (0-4.5); HEMATOCRIT 26.8 % (35.4-49); HEMOGLOBIN 9.2 GM/dL (11.7-16.9); LYMPH % 15.6 % (8-40); MCHC 34.2 g/dl (32.0-35.9); MEAN CELL VOLUME 102.4 fl (80-96); MEAN PLT VOLUME 8.5 fl (7.5-11.1); MONO % 12.2 % (3.8-10.2); PLATELET COUNT 286 10^3/uL (134-434); RBC 2.62 M/mm3 (4.00-5.60); RDW 13.9 % (11.9-15.9); WHITE BLOOD COUNT 6.4 K/mm3 (4.0-10.0)
[2022-09-05 07:36] LABS: POTASSIUM 3.7 mmol/L (3.5-5.1)
[2022-09-05 07:37] LABS: ALBUMIN 1.7 g/dl (3.4-5.0); CALCIUM 8.3 mg/dL (8.5-10.1)
[2022-09-05 07:38] LABS: BLOOD UREA NITROGEN 6.8 mg/dL (7-18); MAGNESIUM 1.8 mg/dL (1.8-2.4)
[2022-09-05 07:40] LABS: CREATININE 0.6 mg/dL (0.55-1.3)
[2022-09-05 07:41] LABS: PHOSPHOROUS 3.8 mg/dL (2.5-4.9)
[2022-09-05 07:42] LABS: BILIRUBIN,TOTAL 0.3 mg/dL (0.2-1)
[2022-09-05 07:45] LABS: TOT PROT 4.2 g/dl (6.4-8.2)
[2022-09-05] MEDS: LACTATED RINGERS SOLUTION 1,000 ML/1,000 ML INFUS.BAG IV SCH (09:04)
[2022-09-05] MEDS: THIAMINE HCL 100 MG TABLET (FP) PO SCH (09:06)
[2022-09-05] MEDS: MULTIVITAMINS (DAILY MVI) TABLET (FP) PO SCH (09:06)
[2022-09-05] MEDS: CHOLECALCIFEROL (VIT D3) 1,000 UNIT (25 MCG) TABLET PO SCH (09:06)
[2022-09-05] MEDS: MIDODRINE HCL 5 MG TABLET PO SCH ×3 (09:06→17:17)
[2022-09-05] MEDS: PANTOPRAZOLE 40 MG TABLET PO SCH (09:06)
[2022-09-05] MEDS: FOLIC ACID 1 MG TABLET (FP) PO SCH (09:06)
[2022-09-05] MEDS: NICOTINE 21 MG/24 HOURS TOPICAL PATCH TD SCH (09:08)
[2022-09-05] MEDS: DEXTROSE 5%-LACTATED RINGERS 1,000 ML IV SCH (09:23)
[2022-09-05] MEDS: CYANOCOBALAMIN 1,000 MCG TABLET (FP) PO SCH (09:29)
[2022-09-05] MEDS ORDERED: LACTATED RINGERS SOLUTION 1000 ML INFUS.BAG IV ONE (10:12)
[2022-09-05] MEDS: PHENYLEPHRINE NS PREMIX 50,000 MCG/500 ML BAG CVP SCH (22:16)
[2022-09-05] MEDS: CHLORHEXIDINE GLUCONATE 4% CLEANSER FOR DECOLONIZATION TP SCH (22:16)
[2022-09-05] MEDS: ATORVASTATIN CA 40 MG TABLET (FP) PO SCH (22:17)
[2022-09-05] MEDS: oxyCODONE HCL 5 MG TABLET PO PRN (23:29)
[2022-09-06] MEDS: DEXMEDETOMIDINE PREMIX 400 MCG/100 ML BAG IVPB SCH ×2 (01:00→14:15)
[2022-09-06] MEDS: ACETAMINOPHEN 1000 MG/100 ML BAG IVPB SCH ×3 (01:19→17:33)
[2022-09-06] MEDS: PIPERACILLIN/TAZOB 4.5 GM 4.5 GM in DEXTROSE 5%-WATER 100 ML IVPB SCH ×3 (01:20→17:35)
[2022-09-06] MEDS: DEXTROSE 5%-LACTATED RINGERS 1,000 ML IV SCH (03:13)
[2022-09-06] MEDS: HEPARIN NA (PORCINE) 5,000 UNITS/ML 1ML VIAL SQ SCH ×3 (06:21→21:16)
[2022-09-06 06:59] LABS: BASO % 0.4 % (0-2.0); EOS % 0.5 % (0-4.5); HEMATOCRIT 25.7 % (35.4-49); HEMOGLOBIN 8.5 GM/dL (11.7-16.9); LYMPH % 11.9 % (8-40); MCH 33.6 pg (25.7-33.7); MCHC 33.2 g/dl (32.0-35.9); MEAN CELL VOLUME 101.3 fl (80-96); MONO % 10.9 % (3.8-10.2); NEUT % 76.3 % (42.8-82.8); PLATELET COUNT 403 10^3/uL (134-434); RBC 2.53 M/mm3 (4.00-5.60); RDW 14.2 % (11.9-15.9); WHITE BLOOD COUNT 9.9 K/mm3 (4.0-10.0)
[2022-09-06 07:25] LABS: POTASSIUM 3.4 mmol/L (3.5-5.1)
[2022-09-06 07:28] LABS: BLOOD UREA NITROGEN 9.4 mg/dL (7-18); CALCIUM 8.1 mg/dL (8.5-10.1)
[2022-09-06 07:29] LABS: ALBUMIN 1.8 g/dl (3.4-5.0); MAGNESIUM 1.6 mg/dL (1.8-2.4)
[2022-09-06 07:31] LABS: CREATININE 0.7 mg/dL (0.55-1.3); PHOSPHOROUS 2.9 mg/dL (2.5-4.9)
[2022-09-06 07:33] LABS: BILIRUBIN,TOTAL 0.4 mg/dL (0.2-1); TOT PROT 4.5 g/dl (6.4-8.2)
[2022-09-06] MEDS ORDERED: MAGNESIUM SULF 50% (8.12 MEQ/2 ML-1 GM VIAL) IVPB ONE (08:00)
[2022-09-06] MEDS: KCL 10 MEQ IVPB 10 MEQ/100 ML INFUS.BAG IVPB SCH ×2 (08:19→09:11)
[2022-09-06] MEDS: NICOTINE 21 MG/24 HOURS TOPICAL PATCH TD SCH (09:13)
[2022-09-06] MEDS: CHOLECALCIFEROL (VIT D3) 1,000 UNIT (25 MCG) TABLET PO SCH (09:13)
[2022-09-06] MEDS: FOLIC ACID 1 MG TABLET (FP) PO SCH (09:13)
[2022-09-06] MEDS: MULTIVITAMINS (DAILY MVI) TABLET (FP) PO SCH (09:13)
[2022-09-06] MEDS: PANTOPRAZOLE 40 MG TABLET PO SCH (09:13)
[2022-09-06] MEDS: MIDODRINE HCL 5 MG TABLET PO SCH ×3 (09:13→17:33)
[2022-09-06] MEDS ORDERED: DOCUSATE SODIUM 100 MG CAPSULE (FP) PO PRN (10:13)
[2022-09-06] MEDS: POLYETHYLENE GLYCOL (HEALTHYLAX) 3350 17 GM PACKET PO SCH ×2 (11:06→21:16)
[2022-09-06] MEDS: ATORVASTATIN CA 40 MG TABLET (FP) PO SCH (21:16)
[2022-09-06] MEDS: PHENYLEPHRINE NS PREMIX 50,000 MCG/500 ML BAG CVP SCH (21:16)
[2022-09-06] MEDS: CHLORHEXIDINE GLUCONATE 4% CLEANSER FOR DECOLONIZATION TP SCH (21:16)
[2022-09-06] MEDS: oxyCODONE HCL 5 MG TABLET PO PRN (21:17)
[2022-09-07] MEDS: PIPERACILLIN/TAZOB 4.5 GM 4.5 GM in DEXTROSE 5%-WATER 100 ML IVPB SCH ×3 (01:02→17:10)
[2022-09-07] MEDS: ACETAMINOPHEN 1000 MG/100 ML BAG IVPB SCH (02:25)
[2022-09-07] MEDS: LORazepam 2 MG/ML SDV VIAL IVPUSH PRN (02:26)
[2022-09-07] MEDS: HEPARIN NA (PORCINE) 5,000 UNITS/ML 1ML VIAL SQ SCH ×3 (06:03→21:44)
[2022-09-07 07:44] LABS: BASO % 0.4 % (0-2.0); EOS % 0.4 % (0-4.5); HEMATOCRIT 24.4 % (35.4-49); HEMOGLOBIN 7.9 GM/dL (11.7-16.9); MCH 32.3 pg (25.7-33.7); MCHC 32.6 g/dl (32.0-35.9); MEAN CELL VOLUME 99.2 fl (80-96); MEAN PLT VOLUME 7.3 fl (7.5-11.1); MONO % 7.7 % (3.8-10.2); NEUT % 82.5 % (42.8-82.8); PLATELET COUNT 423 10^3/uL (134-434); RBC 2.46 M/mm3 (4.00-5.60); RDW 14.9 % (11.9-15.9); WHITE BLOOD COUNT 12.9 K/mm3 (4.0-10.0)
[2022-09-07] MEDS ORDERED: ACETAMINOPHEN 325 MG TABLET (FP) PO PRN (08:05)
[2022-09-07 08:23] LABS: POTASSIUM 3.7 mmol/L (3.5-5.1)
[2022-09-07 08:33] LABS: ALBUMIN 1.7 g/dl (3.4-5.0); MAGNESIUM 1.9 mg/dL (1.8-2.4)
[2022-09-07 08:36] LABS: CREATININE 0.7 mg/dL (0.55-1.3); PHOSPHOROUS 3.2 mg/dL (2.5-4.9)
[2022-09-07 08:37] LABS: BILIRUBIN,TOTAL 0.4 mg/dL (0.2-1)
[2022-09-07 08:38] LABS: TOT PROT 4.5 g/dl (6.4-8.2)
[2022-09-07] MEDS: MIDODRINE HCL 5 MG TABLET PO SCH ×2 (09:02→14:01)
[2022-09-07] MEDS: PANTOPRAZOLE 40 MG TABLET PO SCH (09:02)
[2022-09-07] MEDS: oxyCODONE HCL 5 MG TABLET PO PRN ×2 (09:03→15:18)
[2022-09-07] MEDS: FOLIC ACID 1 MG TABLET (FP) PO SCH (09:03)
[2022-09-07] MEDS: MULTIVITAMINS (DAILY MVI) TABLET (FP) PO SCH (09:03)
[2022-09-07] MEDS: CHOLECALCIFEROL (VIT D3) 1,000 UNIT (25 MCG) TABLET PO SCH (09:03)
[2022-09-07] MEDS: NICOTINE 21 MG/24 HOURS TOPICAL PATCH TD SCH (09:04)
[2022-09-07] MEDS: POLYETHYLENE GLYCOL (HEALTHYLAX) 3350 17 GM PACKET PO SCH ×2 (09:05→21:44)
[2022-09-07] MEDS ORDERED: POTASSIUM CHLORIDE TABS 20 MEQ TABLET.ER (FP) PO ONE (12:45)
[2022-09-07] MEDS: VANCOMYCIN/WATER FOR INJ (PEG) 1,000 MG/200 ML BAG IVPB SCH (21:44)
[2022-09-07] MEDS: CHLORHEXIDINE GLUCONATE 4% CLEANSER FOR DECOLONIZATION TP SCH (21:44)
[2022-09-07] MEDS: ATORVASTATIN CA 40 MG TABLET (FP) PO SCH (21:44)
[2022-09-08] MEDS: PIPERACILLIN/TAZOB 4.5 GM 4.5 GM in DEXTROSE 5%-WATER 100 ML IVPB SCH ×2 (01:31→09:12)
[2022-09-08] MEDS: HEPARIN NA (PORCINE) 5,000 UNITS/ML 1ML VIAL SQ SCH ×3 (05:57→21:15)
[2022-09-08 06:54] LABS: HEMATOCRIT 23.8 % (35.4-49); HEMOGLOBIN 7.9 GM/dL (11.7-16.9); MCH 33.3 pg (25.7-33.7); MCHC 33.3 g/dl (32.0-35.9); MEAN CELL VOLUME 100.3 fl (80-96); MEAN PLT VOLUME 7.4 fl (7.5-11.1); PLATELET COUNT 424 10^3/uL (134-434); RBC 2.38 M/mm3 (4.00-5.60); RDW 14.9 % (11.9-15.9); WHITE BLOOD COUNT 13.4 K/mm3 (4.0-10.0)
[2022-09-08 07:05] LABS: INR 1.06 (0.83-1.09); PROTHROMBIN TIME (PATIENT) 12.3 SEC (9.7-13.0)
[2022-09-08 07:14] LABS: POTASSIUM 4.2 mmol/L (3.5-5.1)
[2022-09-08] MEDS: MIDODRINE HCL 5 MG TABLET PO SCH ×4 (07:15→17:11)
[2022-09-08 07:18] LABS: ALBUMIN 1.9 g/dl (3.4-5.0); BLOOD UREA NITROGEN 6.6 mg/dL (7-18); CALCIUM 8.2 mg/dL (8.5-10.1); MAGNESIUM 1.8 mg/dL (1.8-2.4)
[2022-09-08 07:21] LABS: BILIRUBIN,DIRECT 0.2 mg/dL (0.0-0.2); CREATININE 0.7 mg/dL (0.55-1.3); PHOSPHOROUS 3.4 mg/dL (2.5-4.9)
[2022-09-08 07:23] LABS: BILIRUBIN,TOTAL 0.4 mg/dL (0.2-1); TOT PROT 4.6 g/dl (6.4-8.2)
[2022-09-08] MEDS ORDERED: LIDOCAINE HCL 1%, 10 MG/ML (10ML VIAL) MDV SQ ONE ×2 (08:35→12:30)
[2022-09-08] MEDS: PANTOPRAZOLE 40 MG TABLET PO SCH (09:11)
[2022-09-08] MEDS: FOLIC ACID 1 MG TABLET (FP) PO SCH (09:11)
[2022-09-08] MEDS: MULTIVITAMINS (DAILY MVI) TABLET (FP) PO SCH (09:11)
[2022-09-08] MEDS: oxyCODONE HCL 5 MG TABLET PO PRN (09:11)
[2022-09-08] MEDS: CHOLECALCIFEROL (VIT D3) 1,000 UNIT (25 MCG) TABLET PO SCH (09:11)
[2022-09-08] MEDS: NICOTINE 21 MG/24 HOURS TOPICAL PATCH TD SCH (09:12)
[2022-09-08] MEDS: VANCOMYCIN/WATER FOR INJ (PEG) 1,000 MG/200 ML BAG IVPB SCH ×2 (09:12→19:03)
[2022-09-08] MEDS: POLYETHYLENE GLYCOL (HEALTHYLAX) 3350 17 GM PACKET PO SCH ×2 (09:12→21:15)
[2022-09-08] MEDS: PIPERACILLIN/TAZOB 3.375 GM 3.375 GM in DEXTROSE 5%-WATER - 50 ML IVPB SCH (17:10)
[2022-09-08] MEDS: CHLORHEXIDINE GLUCONATE 4% CLEANSER FOR DECOLONIZATION TP SCH (21:15)
[2022-09-08] MEDS: ATORVASTATIN CA 40 MG TABLET (FP) PO SCH (21:16)
[2022-09-08] MEDS ORDERED: ZOLPIDEM TARTRATE 5 MG TABLET PO ONE (22:00)
[2022-09-09] MEDS: PIPERACILLIN/TAZOB 3.375 GM 3.375 GM in DEXTROSE 5%-WATER - 50 ML IVPB SCH ×3 (01:23→17:01)
[2022-09-09] MEDS: HEPARIN NA (PORCINE) 5,000 UNITS/ML 1ML VIAL SQ SCH ×3 (06:37→22:18)
[2022-09-09] MEDS: oxyCODONE HCL 5 MG TABLET PO PRN ×2 (06:44→11:10)
[2022-09-09 07:19] LABS: HEMATOCRIT 23.7 % (35.4-49); HEMOGLOBIN 7.9 GM/dL (11.7-16.9); MCH 33.3 pg (25.7-33.7); MCHC 33.5 g/dl (32.0-35.9); MEAN CELL VOLUME 99.4 fl (80-96); MEAN PLT VOLUME 7.5 fl (7.5-11.1); PLATELET COUNT 448 10^3/uL (134-434); RBC 2.39 M/mm3 (4.00-5.60); WHITE BLOOD COUNT 9.1 K/mm3 (4.0-10.0)
[2022-09-09 07:45] LABS: POTASSIUM 3.8 mmol/L (3.5-5.1)
[2022-09-09 07:50] LABS: ALBUMIN 1.8 g/dl (3.4-5.0); BLOOD UREA NITROGEN 6.1 mg/dL (7-18); MAGNESIUM 1.8 mg/dL (1.8-2.4)
[2022-09-09 07:53] LABS: CREATININE 0.8 mg/dL (0.55-1.3); PHOSPHOROUS 3.8 mg/dL (2.5-4.9)
[2022-09-09 07:54] LABS: TOT PROT 4.8 g/dl (6.4-8.2)
[2022-09-09 07:55] LABS: BILIRUBIN,TOTAL 0.4 mg/dL (0.2-1)
[2022-09-09] MEDS: VANCOMYCIN/WATER FOR INJ (PEG) 1,000 MG/200 ML BAG IVPB SCH ×2 (09:00→20:30)
[2022-09-09] MEDS: MIDODRINE HCL 5 MG TABLET PO SCH ×3 (09:23→17:00)
[2022-09-09] MEDS: FOLIC ACID 1 MG TABLET (FP) PO SCH (09:23)
[2022-09-09] MEDS: CHOLECALCIFEROL (VIT D3) 1,000 UNIT (25 MCG) TABLET PO SCH (09:23)
[2022-09-09] MEDS: MULTIVITAMINS (DAILY MVI) TABLET (FP) PO SCH (09:23)
[2022-09-09] MEDS: PANTOPRAZOLE 40 MG TABLET PO SCH (09:23)
[2022-09-09] MEDS: NICOTINE 21 MG/24 HOURS TOPICAL PATCH TD SCH (09:24)
[2022-09-09] MEDS: POLYETHYLENE GLYCOL (HEALTHYLAX) 3350 17 GM PACKET PO SCH ×2 (09:25→22:18)
[2022-09-09] MEDS ORDERED: ACETAMINOPHEN 1000 MG/100 ML BAG IVPB PRN (10:32)
[2022-09-09] MEDS: CHLORHEXIDINE GLUCONATE 4% CLEANSER FOR DECOLONIZATION TP SCH (22:19)
[2022-09-09] MEDS: ATORVASTATIN CA 40 MG TABLET (FP) PO SCH (22:19)
[2022-09-10 07:11] LABS: BASO % 0.9 % (0-2.0); EOS % 2.1 % (0-4.5); HEMATOCRIT 23.6 % (35.4-49); LYMPH % 14.8 % (8-40); MCH 33.5 pg (25.7-33.7); MCHC 33.7 g/dl (32.0-35.9); MEAN CELL VOLUME 99.2 fl (80-96); MONO % 10.2 % (3.8-10.2); PLATELET COUNT 463 10^3/uL (134-434); RBC 2.38 M/mm3 (4.00-5.60); RDW 15.1 % (11.9-15.9); WHITE BLOOD COUNT 9.5 K/mm3 (4.0-10.0)
[2022-09-10 07:39] LABS: ALBUMIN 2.1 g/dl (3.4-5.0); CALCIUM 8.1 mg/dL (8.5-10.1)
[2022-09-10 07:42] LABS: BILIRUBIN,TOTAL 0.3 mg/dL (0.2-1); CREATININE 0.6 mg/dL (0.55-1.3)
[2022-09-10] MEDS: NICOTINE 21 MG/24 HOURS TOPICAL PATCH TD SCH (09:08)
[2022-09-10] MEDS: VANCOMYCIN/WATER FOR INJ (PEG) 1,000 MG/200 ML BAG IVPB SCH (09:08)
[2022-09-10] MEDS: MULTIVITAMINS (DAILY MVI) TABLET (FP) PO SCH (09:09)
[2022-09-10] MEDS: PANTOPRAZOLE 40 MG TABLET PO SCH (09:09)
[2022-09-10] MEDS: MIDODRINE HCL 5 MG TABLET PO SCH ×3 (09:09→17:16)
[2022-09-10] MEDS: FOLIC ACID 1 MG TABLET (FP) PO SCH (09:09)
[2022-09-10] MEDS: CHOLECALCIFEROL (VIT D3) 1,000 UNIT (25 MCG) TABLET PO SCH (09:09)
[2022-09-10] MEDS: POLYETHYLENE GLYCOL (HEALTHYLAX) 3350 17 GM PACKET PO SCH ×2 (09:09→21:38)
[2022-09-10] MEDS: HEPARIN NA (PORCINE) 5,000 UNITS/ML 1ML VIAL SQ SCH ×2 (13:26→21:38)
[2022-09-10] MEDS: oxyCODONE HCL 5 MG TABLET PO PRN (15:36)
[2022-09-10] MEDS: CHLORHEXIDINE GLUCONATE 4% CLEANSER FOR DECOLONIZATION TP SCH (21:38)
[2022-09-10] MEDS: ATORVASTATIN CA 40 MG TABLET (FP) PO SCH (21:38)
[2022-09-10] MEDS: MELATONIN 5 MG TABLETS PO PRN (22:56)
[2022-09-11 08:12] LABS: HEMATOCRIT 25.2 % (35.4-49); HEMOGLOBIN 8.4 GM/dL (11.7-16.9); MCH 33.1 pg (25.7-33.7); MCHC 33.1 g/dl (32.0-35.9); MEAN PLT VOLUME 7.7 fl (7.5-11.1); PLATELET COUNT 563 10^3/uL (134-434); RBC 2.52 M/mm3 (4.00-5.60); RDW 15.6 % (11.9-15.9); WHITE BLOOD COUNT 8.4 K/mm3 (4.0-10.0)
[2022-09-11 09:06] LABS: POTASSIUM 4.1 mmol/L (3.5-5.1)
[2022-09-11 09:09] LABS: ALBUMIN 2.3 g/dl (3.4-5.0); CALCIUM 8.7 mg/dL (8.5-10.1); MAGNESIUM 1.9 mg/dL (1.8-2.4)
[2022-09-11 09:12] LABS: PHOSPHOROUS 4.3 mg/dL (2.5-4.9)
[2022-09-11 09:13] LABS: CREATININE 0.6 mg/dL (0.55-1.3)
[2022-09-11 09:14] LABS: BILIRUBIN,TOTAL 0.3 mg/dL (0.2-1); TOT PROT 5.7 g/dl (6.4-8.2)
[2022-09-11] MEDS: MULTIVITAMINS (DAILY MVI) TABLET (FP) PO SCH (10:25)
[2022-09-11] MEDS: MIDODRINE HCL 5 MG TABLET PO SCH ×3 (10:25→17:04)
[2022-09-11] MEDS: CHOLECALCIFEROL (VIT D3) 1,000 UNIT (25 MCG) TABLET PO SCH (10:25)
[2022-09-11] MEDS: FOLIC ACID 1 MG TABLET (FP) PO SCH (10:25)
[2022-09-11] MEDS: NICOTINE 21 MG/24 HOURS TOPICAL PATCH TD SCH (10:25)
[2022-09-11] MEDS: PANTOPRAZOLE 40 MG TABLET PO SCH (10:25)
[2022-09-11] MEDS: POLYETHYLENE GLYCOL (HEALTHYLAX) 3350 17 GM PACKET PO SCH ×2 (10:25→21:15)
[2022-09-11] MEDS: HEPARIN NA (PORCINE) 5,000 UNITS/ML 1ML VIAL SQ SCH ×3 (14:36→22:18)
[2022-09-11 18:58] VITALS: RESP 18
[2022-09-11] MEDS: VANCOMYCIN/WATER FOR INJ (PEG) 1,000 MG/200 ML BAG IVPB SCH (21:14)
[2022-09-11] MEDS: ATORVASTATIN CA 40 MG TABLET (FP) PO SCH (21:15)
[2022-09-11] MEDS: CHLORHEXIDINE GLUCONATE 4% CLEANSER FOR DECOLONIZATION TP SCH (21:15)
[2022-09-11] MEDS: MELATONIN 5 MG TABLETS PO PRN (21:15)
[2022-09-11 22:32] VITALS: BP 111/59; PULSE 74; TEMP 98.7
[2022-09-12] MEDS: HEPARIN NA (PORCINE) 5,000 UNITS/ML 1ML VIAL SQ SCH (05:29)
[2022-09-12] MEDS: VANCOMYCIN/WATER FOR INJ (PEG) 1,000 MG/200 ML BAG IVPB SCH (08:21)
[2022-09-12] MEDS: MIDODRINE HCL 5 MG TABLET PO SCH (09:25)
[2022-09-12] MEDS: PANTOPRAZOLE 40 MG TABLET PO SCH (09:25)
[2022-09-12] MEDS: NICOTINE 21 MG/24 HOURS TOPICAL PATCH TD SCH (09:25)
[2022-09-12] MEDS: POLYETHYLENE GLYCOL (HEALTHYLAX) 3350 17 GM PACKET PO SCH (09:25)
[2022-09-12] MEDS: CHOLECALCIFEROL (VIT D3) 1,000 UNIT (25 MCG) TABLET PO SCH (09:26)
[2022-09-12] MEDS: MULTIVITAMINS (DAILY MVI) TABLET (FP) PO SCH (09:26)
[2022-09-12] MEDS: FOLIC ACID 1 MG TABLET (FP) PO SCH (09:27)
== END 2022-09-12 09:35 | disposition left against medical advice (07) | DRG 121 ==
LOC: J2C 08-28 04:02 → JICU 08-28 21:17 → J4W 09-11 01:51
PROVIDERS: ADMIT Student in an Organized Health Care Education/Training Program; ATTEND Internal Medicine
PROC: 0BBL0ZZ Excision of Left Lung, Open Approach (ICD-10-PCS; 2022-08-28)
PROC: 0W9B00Z Drainage of Left Pleural Cavity with Drainage Device, Open Approach (ICD-10-PCS; 2022-08-28)
PROC: 0B5P3ZZ Destruction of Left Pleura, Percutaneous Approach (ICD-10-PCS; principal; 2022-08-28 14:00)
DX: J43.9 Emphysema, unspecified (principal); E78.5 Hyperlipidemia, unspecified; J95.831 Postprocedural hemorrhage of a respiratory system organ or structure following other procedure; Y83.9 Surgical procedure, unspecified as the cause of abnormal reaction of the patient, or of later complication, without mention of misadventure at the time of the procedure; J98.11 Atelectasis; T68.XXXA Hypothermia, initial encounter; K70.10 Alcoholic hepatitis without ascites; J94.8 Other specified pleural conditions; J93.83 Other pneumothorax; E87.6 Hypokalemia; E83.42 Hypomagnesemia; E83.39 Other disorders of phosphorus metabolism; F10.239 Alcohol dependence with withdrawal, unspecified
CPT/HCPCS: 36415; 71045-TC-FY; 71046-TC-FY; 80048; 80053; 80076; 81003; 82962; 83605; 83735; 84100; 84153; 85025; 85027; 85610; 85730; 86850; 86900; 86901; 87040; 87070; 87075; 87086; 87186; 87205; 88307-TC; 93005; 93010; 94640; 94760; 97116-GP; 97162-GP; G0480; J1644

== ENCOUNTER 2022-09-13 13:06 | Emergency (ER) | payer OTHER ==
[2022-09-13 13:17] VITALS: BP 90/60; PULSE 110; RESP 20; TEMP 98.5; BMI 22.6
== END 2022-09-13 16:52 | disposition left against medical advice (07) ==
LOC: JER 13:06
DX: J93.9 Pneumothorax, unspecified (principal); J98.4 Other disorders of lung
CPT/HCPCS: 71250-TC; 99284-25

== ENCOUNTER 2023-01-11 01:21 | Inpatient (IN) | payer OTHER ==
[2023-01-11 01:39] VITALS: BMI 18.1
[2023-01-11] MEDS ORDERED: ONDANSETRON 4 MG/2 ML VIAL IVPUSH ONE (01:47)
[2023-01-11] MEDS ORDERED: FAMOTIDINE 20 MG/50 ML IVPB 20 MG/50 ML MG IVPB ONE ×2 (01:49→02:03)
[2023-01-11] MEDS ORDERED: ONDANSETRON 4 MG/2 ML VIAL ONE (02:01)
[2023-01-11 03:19] LABS: INR 1.12 (0.83-1.09)
[2023-01-11 03:51] LABS: HEMATOCRIT 33.5 % (35.4-49); HEMOGLOBIN 11.5 GM/dL (11.7-16.9); MCH 31.1 pg (25.7-33.7); MCHC 34.3 g/dl (32.0-35.9); MEAN CELL VOLUME 90.5 fl (80-96); MEAN PLT VOLUME 8.6 fl (7.5-11.1); PLATELET COUNT 178 10^3/uL (134-434); RDW 19.7 % (11.9-15.9)
[2023-01-11 04:08] LABS: POTASSIUM 4.6 mmol/L (3.5-5.1)
[2023-01-11 04:10] LABS: ALBUMIN 2.6 g/dl (3.4-5.0); BLOOD UREA NITROGEN 9.7 mg/dL (7-18); CALCIUM 8.3 mg/dL (8.5-10.1)
[2023-01-11 04:13] LABS: CREATININE 1.1 mg/dL (0.55-1.3)
[2023-01-11 04:15] LABS: TOT PROT 5.8 g/dl (6.4-8.2)
[2023-01-11 05:03] LABS: ANISOCYTOSIS 1+; MACROCYTOSIS 0; TARGET CELLS 1+
[2023-01-11 07:19] LABS: POTASSIUM 4.9 mmol/L (3.5-5.1)
[2023-01-11 07:21] LABS: CALCIUM 8.3 mg/dL (8.5-10.1)
[2023-01-11 07:22] LABS: ALBUMIN 2.4 g/dl (3.4-5.0); BLOOD UREA NITROGEN 9.2 mg/dL (7-18)
[2023-01-11 07:25] LABS: CREATININE 1.3 mg/dL (0.55-1.3)
[2023-01-11 07:26] LABS: TOT PROT 5.4 g/dl (6.4-8.2)
[2023-01-11 07:27] LABS: BILIRUBIN,TOTAL 5.6 mg/dL (0.2-1)
[2023-01-11 07:59] LABS: EPI CELLS 1 /uL (0-25.1); HYALINE CASTS 0 /uL (0-3.1); URINE APPEARANCE CLEAR; URINE BILIRUBIN 2+ (NEGATIVE); URINE COLOR DK YELLOW; URINE GLUCOSE (UA) NEGATIVE (NEGATIVE); URINE KETONE NEGATIVE (NEGATIVE); URINE LEUK ESTERASE TRACE (NEGATIVE); URINE NITRITE POSITIVE (NEGATIVE); URINE PROTEIN TRACE (NEGATIVE); URINE RBC 22 /uL (0-23.9); URINE WBC 3 /uL (0-25.8)
[2023-01-11] MEDS ORDERED: DEXTROSE 5%-WATER - 1,000 ML IV SCH (09:00)
[2023-01-11] MEDS ORDERED: ONDANSETRON 4 MG/2 ML VIAL IVPUSH PRN (09:00)
[2023-01-11] MEDS ORDERED: PANTOPRAZOLE SODIUM 40 MG/100 ML BAG IVPB ONE (09:06)
[2023-01-11 09:47] LABS: URINE BACTERIA 6.2 /uL (0-1359)
[2023-01-11] MEDS: DEXTROSE 5%-WATER - 1,000 ML IV SCH (14:32)
[2023-01-11] MEDS: ENOXAPARIN NA (PORCINE) 40 MG/0.4 ML DISP.SYRIN SQ SCH (15:01)
[2023-01-11 16:46] LABS: HEPATITIS B SURFACE AG MATERN NON-REACTIVE (NONREACTIVE)
[2023-01-11 17:18] LABS: PHENCYCLIDINE,URINE NEGATIVE (NEGATIVE)
[2023-01-11 17:19] LABS: COCAINE, UR NEGATIVE (NEGATIVE); METHADONE, UR NEGATIVE (NEGATIVE); OPIATES, URI NEGATIVE (NEGATIVE); URINE AMPHETAMINES NEGATIVE (NEGATIVE); URINE BARBITURATES NEGATIVE (NEGATIVE); URINE BENZODIAZEPINES NEGATIVE (NEGATIVE)
[2023-01-12] MEDS: DEXTROSE 5%-WATER - 1,000 ML IV SCH ×3 (03:15→15:22)
[2023-01-12 09:03] LABS: VENOUS BASE EXCESS 1.3 mmol/L (-2-2); VENOUS O2 SATURATION 88.1 % (70-80); VENOUS PH 7.418 (7.310-7.410)
[2023-01-12 09:28] LABS: POTASSIUM 3.7 mmol/L (3.5-5.1)
[2023-01-12 09:30] LABS: ALBUMIN 2.3 g/dl (3.4-5.0); BLOOD UREA NITROGEN 6.4 mg/dL (7-18); CALCIUM 8.1 mg/dL (8.5-10.1)
[2023-01-12 09:33] LABS: CREATININE 1.3 mg/dL (0.55-1.3)
[2023-01-12 09:35] LABS: BILIRUBIN,TOTAL 5.5 mg/dL (0.2-1); TOT PROT 5.3 g/dl (6.4-8.2)
[2023-01-12] MEDS: ENOXAPARIN NA (PORCINE) 40 MG/0.4 ML DISP.SYRIN SQ SCH (09:36)
[2023-01-12] MEDS ORDERED: FOLIC ACID 1 MG TABLET (FP) PO SCH (10:00)
[2023-01-12] MEDS ORDERED: ACETAMINOPHEN 1000 MG/100 ML BAG IVPB PRN (15:12)
[2023-01-12 17:46] VITALS: BP 83/57; PULSE 102; RESP 16; TEMP 98
[2023-01-13] MEDS ORDERED: PANTOPRAZOLE SODIUM 40 MG VIAL IVPUSH SCH (10:00)
== END 2023-01-12 17:45 | disposition short-term general hospital (02) | DRG 281 ==
LOC: JER 01:21 → JERBED 07:17 → J8W 14:25
PROVIDERS: ADMIT Student in an Organized Health Care Education/Training Program; ATTEND Family Medicine
DX: C25.0 Malignant neoplasm of head of pancreas (principal); J94.2 Hemothorax; J43.9 Emphysema, unspecified; K76.0 Fatty (change of) liver, not elsewhere classified; E78.5 Hyperlipidemia, unspecified; F17.210 Nicotine dependence, cigarettes, uncomplicated; K21.9 Gastro-esophageal reflux disease without esophagitis; K57.30 Diverticulosis of large intestine without perforation or abscess without bleeding; R07.89 Other chest pain; R63.0 Anorexia; R63.4 Abnormal weight loss
CPT/HCPCS: 0241U-QW; 36415; 71045-TC-FY; 74177-TC; 76705-TC; 80053; 80307; 81003; 82272; 82378; 82803; 82977; 83690; 84484; 85025; 85610; 85730; 86301; 86708; 86850; 86900; 86901; 87086; 87186; 87340; 87517; 87522; 93005; 93010; 99285-25; Q9967

== ENCOUNTER 2023-01-30 13:56 | Emergency (ER) | payer OTHER ==
[2023-01-30 14:14] VITALS: TEMP 98.2; BMI 19.8
[2023-01-30] MEDS ORDERED: ACETAMINOPHEN 325 MG TABLET (FP) PO ONE (14:41)
[2023-01-30] MEDS ORDERED: ACETAMINOPHEN 325 MG TABLET (FP) ONE (14:46)
[2023-01-30 14:50] LABS: BASO % 0.9 % (0-2.0); EOS % 1.1 % (0-4.5); HEMATOCRIT 28.5 % (35.4-49); HEMOGLOBIN 9.4 GM/dL (11.7-16.9); LYMPH % 23.4 % (8-40); MCHC 33.1 g/dl (32.0-35.9); MEAN CELL VOLUME 102.7 fl (80-96); MEAN PLT VOLUME 6.3 fl (7.5-11.1); MONO % 9.5 % (3.8-10.2); NEUT % 65.1 % (42.8-82.8); PLATELET COUNT 311 10^3/uL (134-434); RBC 2.78 M/mm3 (4.00-5.60); RDW 18.5 % (11.9-15.9); WHITE BLOOD COUNT 7.4 K/mm3 (4.0-10.0)
[2023-01-30 15:01] LABS: INR 0.97 (0.83-1.09); PROTHROMBIN TIME (PATIENT) 11.3 SEC (9.7-13.0)
[2023-01-30 15:04] LABS: ACTIVATED PTT 27.4 SECONDS (25.2-36.5)
[2023-01-30 15:32] LABS: POTASSIUM 4.7 mmol/L (3.5-5.1)
[2023-01-30 15:34] LABS: CALCIUM 8.2 mg/dL (8.5-10.1)
[2023-01-30 15:35] LABS: ALBUMIN 2.7 g/dl (3.4-5.0); BLOOD UREA NITROGEN 6.2 mg/dL (7-18)
[2023-01-30 15:38] LABS: CREATININE 0.9 mg/dL (0.55-1.3)
[2023-01-30 15:39] LABS: BILIRUBIN,TOTAL 0.9 mg/dL (0.2-1); TOT PROT 5.7 g/dl (6.4-8.2)
[2023-01-30 15:43] LABS: N-TERMINAL BNP 246.1 pg/ml (5-125)
[2023-01-30 18:36] VITALS: BP 119/77; PULSE 84; RESP 16
== END 2023-01-30 18:32 | disposition home or self-care (01) ==
LOC: JER 13:56
DX: R07.9 Chest pain, unspecified (principal); R22.43 Localized swelling, mass and lump, lower limb, bilateral
CPT/HCPCS: 36415; 71046-TC-FY; 80053; 83690; 83880; 84484; 85025; 85610; 85730; 93005; 93010; 93970-TC; 99285-25

== ENCOUNTER 2023-10-08 07:33 | Emergency (ER) | payer OTHER ==
[2023-10-08 07:57] VITALS: BP 117/70; PULSE 69; RESP 17; TEMP 98.6; BMI 22.7
[2023-10-08] MEDS ORDERED: ACETAMINOPHEN 500 MG TABLET (FP) ONE (08:23)
[2023-10-08] MEDS ORDERED: AMOX TR/POT CLAV 875MG/125MG TABLETS (FP) ONE (08:23)
[2023-10-08] MEDS: AMOX TR/POT CLAV 875MG/125MG TABLETS (FP) PO ONE (08:27)
[2023-10-08] MEDS: ACETAMINOPHEN 500 MG TABLET (FP) PO ONE (08:27)
[2023-10-08] MEDS: MAG HYDROX/ALH/SMC/DPHA/LIDO 240 ML MOUTHWASH MM STA (08:50)
== END 2023-10-08 09:04 | disposition home or self-care (01) ==
LOC: JERFT 07:33 → JER 07:33 → JERFT 09:04
DX: J02.9 Acute pharyngitis, unspecified (principal); J01.90 Acute sinusitis, unspecified; R09.81 Nasal congestion; R22.1 Localized swelling, mass and lump, neck; Z20.822 Contact with and (suspected) exposure to COVID-19
CPT/HCPCS: 0241U-QW; 87070; 87651; 99285-25